=== PATIENT | female | born 1995 | race African-American/Black ===

== ENCOUNTER 2019-03-26 22:09 | Emergency (ER) | payer MEDICAID ==
[~2019-03-26] VITALS: Ht 162.6 cm; Wt 91.0 kg
[2019-03-27] MEDS ORDERED: VISCOUS LIDOCAINE 2% 15 ML UDC MM STA (00:38)
[2019-03-27] MEDS ORDERED: KETOROLAC 60MG/2ML VIAL IM ONE (00:45)
[2019-03-27 00:59] VITALS: BP 136/86
== END 2019-03-27 01:00 | disposition home or self-care (01) ==
LOC: ER 22:09
DX: J35.8 Other chronic diseases of tonsils and adenoids (principal); F12.10 Cannabis abuse, uncomplicated
CPT/HCPCS: 81025; 96372; 99283; J1885

== ENCOUNTER 2019-03-28 11:07 | Emergency (ER) | payer MEDICAID ==
[~2019-03-28] VITALS: Ht 162.6 cm; Wt 90.0 kg
[2019-03-28] MEDS ORDERED: KETOROLAC 15MG/ML VIAL IM ONE (13:00)
[2019-03-28 13:04] VITALS: BP 145/95
[2019-03-28] MEDS ORDERED: PENICILLIN G BENZATHINE 1,200,000 UNITS/2ML SYR IM ONE (13:45)
== END 2019-03-28 14:15 | disposition home or self-care (01) ==
LOC: ER 11:07
DX: J02.0 Streptococcal pharyngitis (principal); B95.0 Streptococcus, group A, as the cause of diseases classified elsewhere; F12.10 Cannabis abuse, uncomplicated
CPT/HCPCS: 87430; 96372; 99283; J0561; J1885

== ENCOUNTER 2025-06-18 13:16 | Emergency (ER) | payer MEDICAID ==
[~2025-06-18] VITALS: Ht 170.2 cm; Wt 78.0 kg
[2025-06-18 13:22] VITALS: O2SAT 100
[2025-06-18 18:12] VITALS: BP 129/90; PULSE 98; RESP 16; TEMP 37.1; O2SAT 100
== END 2025-06-18 18:13 | disposition home or self-care (01) ==
LOC: ER 13:16
DX: J06.9 Acute upper respiratory infection, unspecified (principal); B97.89 Other viral agents as the cause of diseases classified elsewhere; F12.90 Cannabis use, unspecified, uncomplicated
CPT/HCPCS: 99282